=== PATIENT | male | born 1945 | race Caucasian/White ===

== ENCOUNTER 2021-05-27 13:40 | Inpatient (IN) | payer OTHER ==
[~2021-05-27] VITALS: Ht 170.2 cm; Wt 56.5 kg
[~2021-05-27 13:40] MED LIST: ALBU2.5V5 INH; AMLO10 PO; Prednisone20 MG PO
[2021-05-27] MEDS ORDERED: HYDROCODONE-AC1 EA16 PO (13:59)
[2021-05-27] MEDS ORDERED: TIOT18 INH (13:59)
[2021-05-27] MEDS ORDERED: FLUT1DIS2 (14:00)
[2021-05-27 14:13] LABS: PCO2 Arterial 62.7 mmHg (35-45); PO2 Arterial 264 mmHg (80-100); pH Blood Arterial 7.31 (7.35-7.45)
[2021-05-27 14:14] LABS: BASOPHILS ABSOLUTE AUTO 0.02 K/mm3 (0.00-0.23); BASOPHILS PERCENT AUTO 0 % (0-2); EOSINOPHILS ABSOLUTE AUTO 0.01 K/mm3 (0.00-0.68); EOSINOPHILS PERCENT AUTO 0 % (0-6); Hematocrit 47.7 % (37.0-53.0); Hemoglobin 14.4 g/dL (13.5-17.5); IMMATURE GRAN ABSOLUTE AUTO 0.22 K/mm3 (0.00-0.10); IMMATURE GRAN PERCENT AUTO 1 % (0-1); LYMPHOCYTES ABSOLUTE AUTO 0.69 K/mm3 (0.84-5.20); LYMPHOCYTES PERCENT AUTO 4 % (21-46); MONOCYTES ABSOLUTE AUTO 0.44 K/mm3 (0.16-1.47); MONOCYTES PERCENT AUTO 3 % (4-13); Mean Corpuscular HGB 28.6 pg (26.0-34.0); Mean Corpuscular HGB Conc 30.2 g/dL (31.5-36.5); Mean Corpuscular Volume 95 fL (80-100); Mean Platelet Volume 11.4 fL (9.1-12.4); NEUTROPHILS ABSOLUTE AUTO 14.19 K/mm3 (1.96-9.15); NEUTROPHILS PERCENT AUTO 91 % (41-73); Platelet Count 214 K/mm3 (150-400); RDW Coefficient Variation 14.1 % (11.7-14.2); RDW Standard Deviation 49.1 fL (35.1-46.3); Red Blood Cell Count 5.04 M/mm3 (4.30-5.90); White Blood Cell Count 15.57 K/mm3 (4.00-11.30)
[2021-05-27 14:43] LABS: Influenza A, PCR NEGATIVE (NEGATIVE); Influenza B, PCR NEGATIVE (NEGATIVE); Resp Syncytial Virus, PCR NEGATIVE (NEGATIVE); SARS-Cov-2 (COVID-19) PCR, MMC NEGATIVE (NEGATIVE)
[2021-05-27 14:43] LABS: Alanine Aminotransfer (ALT/SGP 60 U/L (12-78); Albumin, Blood 3.3 g/dL (3.4-5.0); Albumin/Globulin Ratio 0.9 (0.8-1.8); Alk Phos 66 U/L (50-136); Anion Gap 8 mmol/L (6-16); Aspartate Aminotrans (AST/SGOT 36 U/L (12-37); Bilirubin, Total 0.4 mg/dL (0.1-1.0); Blood Urea Nitrogen 25 mg/dL (8-24); Bun/Creatinine Ratio 29.1 (12.0-20.0); CO2, Blood 30 mmol/L (21-32); Calcium, Blood 9.6 mg/dL (8.5-10.1); Chloride, Blood 96 mmol/L (98-108); Creatinine, Blood 0.86 mg/dL (0.60-1.20); Globulin, Blood 3.7 g/dL (2.2-4.0); Glomerular Filtration Rate >60 (60-); Glucose, Blood 228 mg/dL (70-99); Potassium, Blood 5.2 mmol/L (3.5-5.5); Sodium, Blood 134 mmol/L (136-145)
[2021-05-27 17:07] LABS: Anti-Xa UFH, PHA Monitoring <0.10 IU/mL; International Normalized Ratio 1.01; Prothrombin Time Results 10.6 Sec (9.7-11.5)
--- NOTE | 2021-05-27 17:46 | NUR ---
Echocardiogram completed.
[2021-05-28 05:21] LABS: Hematocrit 38.2 % (37.0-53.0); Mean Corpuscular HGB 29.3 pg (26.0-34.0); Mean Corpuscular HGB Conc 31.4 g/dL (31.5-36.5); Mean Corpuscular Volume 93 fL (80-100); Mean Platelet Volume 11.8 fL (9.1-12.4); Platelet Count 192 K/mm3 (150-400); RDW Coefficient Variation 13.9 % (11.7-14.2); RDW Standard Deviation 47.4 fL (35.1-46.3); White Blood Cell Count 9.71 K/mm3 (4.00-11.30)
[2021-05-28 05:31] LABS: Anion Gap 4 mmol/L (6-16); Blood Urea Nitrogen 26 mg/dL (8-24); Bun/Creatinine Ratio 31.2 (12.0-20.0); CO2, Blood 35 mmol/L (21-32); Calcium, Blood 8.9 mg/dL (8.5-10.1); Chloride, Blood 97 mmol/L (98-108); Creatinine, Blood 0.83 mg/dL (0.60-1.20); Glomerular Filtration Rate >60 (60-); Glucose, Blood 96 mg/dL (70-99); Potassium, Blood 4.1 mmol/L (3.5-5.5); Sodium, Blood 136 mmol/L (136-145)
--- NOTE | 2021-05-28 06:02 | NUR ---
SHIFT SUMMARY ASSUMED CARE OF PT AT 1940. PT IS A/OX4. HEART SOUNDS REGULAR WITH A MURMUR. TELE SHOWS ST DEPRESSION T/O THE NIGHT. LUNG SOUNDS VERY TIGHT AND DIMINISHED WITH CRACKLES AT THE BASES. PT REMAINED ON 2L NC T/O THE NIGHT. PT C/O SOB WITH ANY MOVEMENT, EVEN USING THE URINAL. PT HAS 3+ PITTING EDEMA IN BLE. PT STATES THAT HE SLEPT THE BEST HE EVER HAD TONIGHT BECAUSE HE COULD BREATH. PT IS VERY ANXIOUS ABOUT HIS HEART FAILURE DIAGNOSIS. PT STATES THAT HE IS GETTING THINGS IN LINE FOR HIS DAUGHTER FOR WHEN HE PASSES. PT IS WONDERING IF HE WILL BE ABLE TO GET SOME FUNCTION BACK BEFORE HE LEAVES BECAUSE HE DOESNT WANT TO GO HOME AND NOT BREATH AGAIN.
--- NOTE | 2021-05-28 18:30 | NUR ---
SHIFT/TRANSFER SUMMARY: PT A&O T/OUT SHIFT, EXPRESSES ANXIETY R/T DX AND PROGNOSIS PERSON[employer]. MULTIPLE STAFF MEMBERS TO/FROM ROOM TO DISCUSS TOPIC W/PT. PT AGREEABLE TO CARE, ASKING APPROPRIATE QUESTIONS. PT MAINTAINING O2 SATS >95%, CURRENTLY ON 3L/MIN VIA NC. SR-ST W/RATE 90s-110 ON TELEMETRY. THIS AFTERNOON, PT W/EPISODE WITH OF RAPID HEART RATE AND INCREASED SOB, INCIDENT RESPONSE ANALYST CONSULTED, EKG COMPLETED, PT MEDICATED PER EMAR, RETURNS TO SINUS RHYTHM W/NO OTHER ACUTE EVENTS. HEPARIN INFUSION CONTINUES W/NO RATE CHANGES. CURRENTLY, PT PENDING COBRA TRANSFER TO HIGHER LEVEL OF CARE. REPORT HAS BEEN GIVEN TO CHARIS LUU AT [facility] TO RECEIVE PT. WILL CONTINUE TO MONITOR AND TREAT ACCORDINGLY UNTIL TRANSFER CREW ARRIVES OR CHANGE OF SHIFT.
== END 2021-05-28 19:44 | disposition short-term general hospital (02) | DRG 280 ==
LOC: ER 13:40 → ERHOLD 16:47 → PCU 19:34
PROVIDERS: Physician Assistant; ADMIT Internal Medicine
DX: I50.21 Acute systolic (congestive) heart failure (principal); I21.A1 Myocardial infarction type 2; J96.01 Acute respiratory failure with hypoxia; Z23 Encounter for immunization; I08.3 Combined rheumatic disorders of mitral, aortic and tricuspid valves; J44.9 Chronic obstructive pulmonary disease, unspecified; F17.210 Nicotine dependence, cigarettes, uncomplicated; Z20.822 Contact with and (suspected) exposure to COVID-19; I27.20 Pulmonary hypertension, unspecified; Z88.0 Allergy status to penicillin; Z79.51 Long term (current) use of inhaled steroids; Z79.52 Long term (current) use of systemic steroids; Z79.899 Other long term (current) drug therapy
CPT/HCPCS: 0241U; 36415; 36600; 71045; 80048; 80053; 82803; 83880; 84145; 84484; 85025; 85379; 85520; 85610; 90686; 93005; 93010; 96365; 96366; 96375; 99285-25; A9270; C8929; G0008; J1644; J1940; J2405; J7512; Q9957